=== PATIENT | male | born 1980 | race Caucasian/White ===

== ENCOUNTER 2022-08-11 09:42 | Emergency (ER) | payer OTHER, MEDICAID, SELFPAY ==
[2022-08-11] VITALS (10 sets, daily range): BP systolic 108–149; BP diastolic 57–79; PULSE 63–77; RESP 15; TEMP 36.2; O2SAT 96–100; BMI 23.6
--- NOTE | 2022-08-11 09:55 | DI.CT.S_ITS ---
PROCEDURE: CT ABDOMEN PELVIS W CON INDICATIONS: severe LLQ pain, guarding TECHNIQUE: After the administration of IV contrast, axial sections were acquired from the lung bases to the pubic symphysis. Coronal and sagittal reformats were performed. For radiation dose reduction, the following was used: automated exposure control, adjustment of mA and/or kV according to patient size. COMPARISON: None. FINDINGS: Image quality: Excellent. Lung bases: Unremarkable. Heart: No significant findings. ABDOMEN: Liver: Small cyst. Gallbladder: Not distended. Biliary ducts: Unremarkable. Pancreas: Unremarkable. Spleen: Unremarkable. Adrenal Glands: Unremarkable. Kidneys and Ureters: No hydronephrosis. Stomach and Bowel: Stomach, small bowel loops, and colon are unremarkable. A few colonic diverticuli are suspected. Normal appendix. Peritoneum: No abnormal intraperitoneal fluid. No free air. Ventral Wall: Fat containing periumbilical hernia. Abdominal Nodes: No retroperitoneal or mesenteric adenopathy by size criteria. Vessels: Aorta and inferior vena cava are normal in size. PELVIS: Pelvic Organs: No free fluid. Bladder: Not distended. No stones. Pelvic Nodes: No enlarged lymph nodes. Miscellaneous: Possible fat containing right inguinal hernia. Clip in the region of the right inguinal canal. Bones: No suspicious lesion. IMPRESSION: Source of abdominal pain is not identified. No free fluid. Dictated by: Bay Rowley M.D. on 08/11/2022 at 9:44 Approved by: Bay Rowley M.D. on 08/11/2022 at 9:50
[2022-08-11 10:17] LABS: Add Manual Diff / Slide Review NO; Basophils Absolute Auto 0 /uL (0-100); Eosinophils Absolute Auto 200 /uL (0-450); Eosinophils Percent Auto 4.4 % (2-4); Hematocrit 41.5 % (41-53); Hemoglobin 14.1 g/dL (13.5-17.5); Lymphocytes Absolute Auto 1600 /uL (1100-4500); Lymphocytes Percent Auto 36.3 % (25-40); Mean Corpuscular HGB Conc 34.1 % (30-36); Mean Corpuscular Hemoglobin 32.8 PG (26-34); Mean Corpuscular Volume 96.2 fL (80-100); Monocytes Absolute Auto 500 /uL (0-900); Monocytes Percent Auto 10.4 % (3-14); Neutrophils Absolute Auto 2100 /uL (1500-7000); Neutrophils Percent Auto 47.9 % (50-75); Platelet Count 231 X10^3/uL (150-400); Red Blood Cell Count 4.31 X10^6/uL (4.5-5.9); Red Cell Distribution Width 14.5 % (11.6-14.8); White Blood Cell Count 4.5 X10^3/uL (4.5-11.0)
--- NOTE | 2022-08-11 10:26 | ED.ABDPAIN ---
HPI - Abdominal Pain General Chief Complaint: Abdominal Pain Stated Complaint: thinks he has a hernia for about a month Time Seen by Provider: 08/11/22 09:55 History of Present Illness HPI narrative: 41-year-old male smoker with noncontributory medical history presents with a chief complaint of gradually worsening left lower quadrant pain over the past few days if not weeks. [place] and this is the 1st time he is come to land been able to become evaluated. He has worsening pain which he states seems to worsen when he moves or presses on it. He is nauseated but denies any vomiting. He is had no change in appetite and denies constipation or diarrhea. He is passing gas without difficulty. He denies any injury, heavy lifting or known trauma. Denies dysuria, frequency or urgency. Related Data Allergies Allergy/AdvReac Type Severity Reaction Status Date / Time No Known Drug Allergies Allergy Verified 08/11/22 11:02 Review of Systems Review of Systems Narrative: GENERAL: See HPI HEENT: Denies sinus pain, ear pain, sore throat, difficulty swallowing, dizziness. RESPIRATORY: Denies dyspnea, cough, wheezing, hemoptysis, sputum. CARDIOVASCULAR: Denies chest pain, palpitations, orthopnea, edema, GASTROINTESTINAL: See HPI : See HPI MUSCULOSKELETAL: denies weakness, joint pain, or bony pain SKIN: Denies rash, skin lesions, or other NEUROLOGIC: Denies weakness, headache, numbness, change in speech, confusion, seizures, incoordination. PSYCHIATRIC: No concerning psychosocial issues. 12 point review of systems is negative except for those stated above Patient History Social History Smoking Status: Unknown if ever smoked Exam Narrative Exam Narrative: GENERAL: 41[] year old patient appears stated age. Well-developed patient, in mild distress. HEAD: Atraumatic. Normocephalic. EYES: Pupils equal round and reactive. Extraocular motions intact. No scleral icterus. No injection or drainage. ENT: Nose without bleeding, purulent drainage. Throat without erythema, tonsillar hypertrophy or exudate. Airway patent. NECK: Trachea midline. Non tender CARDIOVASCULAR: Regular rate and rhythm without murmurs, gallops, or rubs. RESPIRATORY: Clear to auscultation. Breath sounds equal bilaterally. No wheezes, rales, or rhonchi. GASTROINTESTINAL: Abdomen soft, significant tenderness to palpation of left lower quadrant with localized guarding. Bowel sounds present EXTREMITIES: No edema or joint tenderness. BACK: Nontender without deformity or crepitance. No flank tenderness. NEURO: AOx3. SKIN: No rash or erythema of visible areas Initial Vital Signs Initial Vital Signs: Vital Signs Temperature 97.2 F L 08/11/22 09:46 Pulse Rate 77 08/11/22 09:46 Respiratory Rate 15 08/11/22 09:46 Blood Pressure 119/79 08/11/22 09:46 Pulse Oximetry 97 08/11/22 09:46 Oxygen Delivery Method 08/11/22 09:46 Course Orders Ordered: ED Orders 08/11/22 09:55 CT abdomen pelvis w con Stat 08/11/22 10:09 Complete Blood Count AUTO DIFF Stat Comprehensive Metabolic Panel Stat Lactate (Lactic Acid) Stat Lipase Stat 08/11/22 11:23 Urinalysis and Microscopic Stat Discontinued Medications Sodium Chloride (Normal Saline 0.9%) 1,000 mls @ 1,000 mls/hr IV BOLUS ONE Stop: 08/11/22 10:54 Last Admin: 08/11/22 11:15 Dose: 1,000 mls/hr Documented By: PEGGY Vital Signs Vital signs: Vital Signs - 8 hr 08/11/22 09:46 08/11/22 10:00 08/11/22 10:05 Temperature 97.2 F L Pulse Rate 77 68 Respiratory Rate 15 Blood Pressure 119/79 117/60 Pulse Oximetry 97 96 Oxygen Delivery Method Room Air 08/11/22 10:05 08/11/22 10:18 08/11/22 10:18 Temperature Pulse Rate 67 63 Respiratory Rate Blood Pressure 149/73 H Pulse Oximetry 98 99 Oxygen Delivery Method 08/11/22 10:30 08/11/22 10:30 08/11/22 10:35 Temperature Pulse Rate 65 65 Respiratory Rate Blood Pressure 113/58 L Pulse Oximetry 97 97 Oxygen Delivery Method 08/11/22 10:35 08/11/22 11:00 08/11/22 11:01 Temperature Pulse Rate 64 68 Respiratory Rate Blood Pressure 117/61 Pulse Oximetry 99 100 Oxygen Delivery Method 08/11/22 11:01 08/11/22 11:30 08/11/22 11:30 Temperature Pulse Rate 63 Respiratory Rate Blood Pressure 132/60 108/66 Pulse Oximetry 100 Oxygen Delivery Method MDM - Abdominal Pain Lab Data Result diagrams: 08/11/22 10:09 08/11/22 10:09 Labs: Lab Results 08/11/22 08/11/22 08/11/22 Range/Units 10:09 10:09 10:09 WBC 4.5 (4.5-11.0) X10^3/uL RBC 4.31 L (4.5-5.9) X10^6/uL Hgb 14.1 (13.5-17.5) g/dL Hct 41.5 (41-53) % MCV 96.2 (80-100) fL MCH 32.8 (26-34) PG MCHC 34.1 (30-36) % RDW 14.5 (11.6-14.8) % Plt Count 231 (150-400) X10^3/uL Neut % (Auto) 47.9 L (50-75) % Lymph % (Auto) 36.3 (25-40) % Mitchell % (Auto) 10.4 (3-14) % Eos % (Auto) 4.4 H (2-4) % Baso % (Auto) 1.0 (0-2) % Neut # (Auto) 2100 (8170-4760) /uL Lymph # (Auto) 1600 (8268-5598) /uL Mitchell # (Auto) 500 (0-900) /uL Eos # (Auto) 200 (0-450) /uL Baso # (Auto) 0 (0-100) /uL Sodium 139 (137-145) mmol/L Potassium 4.3 (3.4-5.1) mmol/L Chloride 106 (98-107) mmol/L Carbon Dioxide 26 (22-32) mmol/L BUN 19 (9-20) mg/dL Creatinine 1.16 (0.66-1.25) mg/dL Estimated GFR > 60 (>60) mL/min BUN/Creatinine Ratio 16.4 (6-22) Glucose 84 (70-100) mg/dL Lactate 0.6 L (0.7-2.1) mmol/L Calcium 8.6 (8.4-10.2) mg/dL Total Bilirubin 0.4 (0.2-1.3) mg/dL AST 29 (17-59) IU/L ALT 20 (<50) IU/L Alkaline Phosphatase 73 (38-126) U/L Total Protein 7.1 (6.3-8.2) g/dL Albumin 4.1 (3.5-5.0) g/dL Globulin 3.0 (1.7-4.1) g/dL Albumin/Globulin Ratio 1.4 (1.0-2.8) Lipase 71 (23-300) U/L Urine Color Urine Appearance Urine pH (4.5-8.0) Ur Specific [place] (1.000-1.035) Urine Protein (Negative) Urine Glucose (UA) (Negative) g/dL Urine Ketones (NEGATIVE) Urine Occult Blood (Negative) Urine Nitrate (Negative) Urine Bilirubin (NEGATIVE) Urine Urobilinogen (0.2) E.U./dL Ur Leukocyte Esterase (NEGATIVE) Urine RBC (0-5/HPF) Urine WBC (0-5/HPF) Urine Bacteria (None) Ur Culture Indicated? Micro UA Comment 08/11/22 Range/Units 11:23 WBC (4.5-11.0) X10^3/uL RBC (4.5-5.9) X10^6/uL Hgb (13.5-17.5) g/dL Hct (41-53) % MCV (80-100) fL MCH (26-34) PG MCHC (30-36) % RDW (11.6-14.8) % Plt Count (150-400) X10^3/uL Neut % (Auto) (50-75) % Lymph % (Auto) (25-40) % Mitchell % (Auto) (3-14) % Eos % (Auto) (2-4) % Baso % (Auto) (0-2) % Neut # (Auto) (8437-1637) /uL Lymph # (Auto) (7101-7404) /uL Mitchell # (Auto) (0-900) /uL Eos # (Auto) (0-450) /uL Baso # (Auto) (0-100) /uL Sodium (137-145) mmol/L Potassium (3.4-5.1) mmol/L Chloride (98-107) mmol/L Carbon Dioxide (22-32) mmol/L BUN (9-20) mg/dL Creatinine (0.66-1.25) mg/dL Estimated GFR (>60) mL/min BUN/Creatinine Ratio (6-22) Glucose (70-100) mg/dL Lactate (0.7-2.1) mmol/L Calcium (8.4-10.2) mg/dL Total Bilirubin (0.2-1.3) mg/dL AST (17-59) IU/L ALT (<50) IU/L Alkaline Phosphatase (38-126) U/L Total Protein (6.3-8.2) g/dL Albumin (3.5-5.0) g/dL Globulin (1.7-4.1) g/dL Albumin/Globulin Ratio (1.0-2.8) Lipase (23-300) U/L Urine Color Yellow Urine Appearance Clear Urine pH 7.0 (4.5-8.0) Ur Specific [place] 1.010 (1.000-1.035) Urine Protein Negative (Negative) Urine Glucose (UA) Negative (Negative) g/dL Urine Ketones Negative (NEGATIVE) Urine Occult Blood Negative (Negative) Urine Nitrate Negative (Negative) Urine Bilirubin Negative (NEGATIVE) Urine Urobilinogen 0.2 (0.2) E.U./dL Ur Leukocyte Esterase Negative (NEGATIVE) Urine RBC None seen (0-5/HPF) Urine WBC None seen (0-5/HPF) Urine Bacteria None seen (None) Ur Culture Indicated? Cult not indicated Micro UA Comment Microscopic normal Imaging Data CT scan - abdomen/pelvis: Radiologist's Impression: Close Abdomen/Pelvis CT (Signed) Ace Rowleyn - 08/11/22 [place] [address] CT Scan Report Signed Patient: Diya Regan MR#: [id number] : 10/31/1933 Acct:[id number] Age/Sex: 88 / F Date of Service: 08/11/22 Loc: ED Accession Number: [id number] ?? Procedure: CT abdomen pelvis w con Ordering Provider: Severino Aguilar D.O. PROCEDURE:? CT ABDOMEN PELVIS W CON ? INDICATIONS:? large volume GI bleeding, lower abdominal cramping ? TECHNIQUE:? After the administration of oral and IV contrast, axial sections were acquired from the lung bases to the pubic symphysis.? Coronal and sagittal reformats were performed.? For radiation dose reduction, the following was used:? automated exposure control, adjustment of mA and/or kV according to patient size. ? COMPARISON:? None. ? FINDINGS:? Image quality:? Excellent.? ? Lung bases:? No pleural effusion. Heart:? No significant findings. ? ? ABDOMEN: Liver:? Well-circumscribed hepatic hypodensities most consistent with benign cysts.? Left lobe calcification. Gallbladder:? Absent. Biliary ducts:? Common hepatic duct measures 1.1 cm, (02/01).? CBD measures 0.5 cm.? No filling defect identified.? Suspect reserved phenomenon.? Pancreas:? No peripancreatic fluid collection. Spleen:? No splenomegaly. Adrenal Glands:? No nodule. Kidneys and Ureters:? No hydronephrosis.? Large simple left renal cyst measuring 7.6 cm.? Suspect left peripelvic cysts.? Scarring at the superior pole of the right kidney.? ? Stomach and Bowel:? Stomach is not distended.? No small bowel obstruction.? The appendix is not identified.? There is prominent stool in the cecum.? Diverticulosis.? No diverticulitis demonstrated.? There is liquid stool contents in the distal colon and rectum.? There is mural enhancement of the rectum and sigmoid colon. Peritoneum:? No abnormal intraperitoneal fluid.? No free air.? ? Ventral Wall: ? No hernia.? Abdominal Nodes:? No retroperitoneal or mesenteric adenopathy by size criteria.? Vessels:? Aorta and inferior vena cava are normal in size.? Moderate plaque.? ? PELVIS: Pelvic Organs:? Unremarkable.? ? Bladder:? Distended.? No stones.? ? Pelvic Nodes: No enlarged lymph nodes.? Miscellaneous:? Probable fat containing left inguinal hernia.? Buttocks injection granulomas. ? Bones:? No suspicious lesion.? Multilevel DDD.? Right hip arthroplasty.? Beam hardening artifact. ? ? IMPRESSION:? 1. Mural enhancement at the sigmoid colon and rectum containing liquid stool contents.? This is most consistent with distal colitis/proctitis. ? 2. Diverticulosis.? No diverticulitis identified. ? 3. No small bowel obstruction.? No free fluid.? ? Dictated by: Bay Rowley M.D. on 08/11/2022 at 9:36 ? ? Approved by: Bay oRwley M.D. on 08/11/2022 at 9:44 ? MDM Narrative Medical decision making narrative: Multiple etiologies for patient's symptoms considered include, but not limited to: [Bowel obstruction versus kidney stone versus diverticulitis versus other Patient's symptoms improved over duration of stay with above-stated therapies. History, physical exam, labs, imaging, and response to therapies have been reassuring. Findings and discharge diagnosis discussed with patient/family followed by verbalization of understanding Return precautions discussed with patient/family whom verbalize understanding. Pain has been well controlled and patient is tolerating oral hydration. Discharge Plan Departure Patient Disposition: Home Clinical Impression: Abdominal pain Instructions: DI for Abdominal Pain-Adult Activity Restrictions/Additional Instructions: *You have been diagnosed with [abdominal pain] * As we discussed your history and physical exam as well as labs and imaging are very reassuring. There is no evidence of any severe diagnoses that would require a specific or immediate intervention. *What to do: *Please consider the use of Tylenol or Motrin for pain *Please follow up with your primary care provider in 2-3 days, call for an appointment. Let them know you were seen in the Emergency Department and that we ask that you be seen in follow up. We will electronically transmit a record of today's note if your PCP is in our system *Please consider a clear liquid diet for the next 24-48 hours and then slowly advance to regular as tolerated. Also, try to avoid alcohol, nicotine, caffeine, spicy, acidic or fatty foods as this may worsen your symptoms *If you do not have a primary care provider please contact the [facility] Resource line at [phone]. They will ask some questions about your medical history and help get you set up with a doctor in the community. *Return to Emergency Department if you should have any new, worsening or concerning symptoms, such as [fever greater than 101 F, shaking chills, worsening pain, persistent vomiting or other bothersome symptoms] Referrals: *[facility]* [Primary Care Provider] -
[2022-08-11 10:27] LABS: Alanine Aminotransferase 20 IU/L (<50); Albumin 4.1 g/dL (3.5-5.0); Albumin Globulin Ratio 1.4 (1.0-2.8); Alkaline Phosphatase 73 U/L (38-126); Aspartate Aminotransferase 29 IU/L (17-59); BUN Creatinine Ratio 16.4 (6-22); Bilirubin Total 0.4 mg/dL (0.2-1.3); Blood Urea Nitrogen 19 mg/dL (9-20); Calcium 8.6 mg/dL (8.4-10.2); Carbon Dioxide 26 mmol/L (22-32); Chloride 106 mmol/L (98-107); Estimated Glomerular Filt Rate > 60 mL/min (>60); Glucose 84 mg/dL (70-100); HEMOLYSIS 19 (0-50); Lipase 71 U/L (23-300); Potassium 4.3 mmol/L (3.4-5.1); Sodium 139 mmol/L (137-145); Total Protein 7.1 g/dL (6.3-8.2)
[2022-08-11 10:28] LABS: Lactate (Lactic Acid) 0.6 mmol/L (0.7-2.1)
[2022-08-11] MEDS: SODIUM CHLORIDE 0.9% 1,000 ML 1000 ML IV (11:15)
[2022-08-11 11:56] LABS: Appearance Urine UA CLEAR; Bilirubin Urine UA NEGATIVE (NEGATIVE); Color Urine UA YELLOW; Glucose Urine UA NEGATIVE (Negative); Ketones Urine UA NEGATIVE (NEGATIVE); Leukocyte Esterase Urine UA NEGATIVE (NEGATIVE); Nitrite Urine UA NEGATIVE (Negative); Occult Blood Urine UA NEGATIVE (Negative); Protein Urine UA NEGATIVE (Negative); Urobilinogen Urine UA 0.2 E.U./dL (0.2)
[2022-08-11 12:03] LABS: RBC Urine None Seen (0-5/HPF); WBC Urine None Seen (0-5/HPF)
[2022-08-11 12:04] LABS: Bacteria Urine None Seen; Culture Indicated Urine Cult Not Indicated; Urine Comments Microscopic Normal
== END 2022-08-11 12:28 | disposition home or self-care (01) ==
PROVIDERS: Emergency Provider Emergency Medicine
DX: R10.32 Left lower quadrant pain (principal)
CPT/HCPCS: 36415; 74177; 80053; 81001; 83605; 83690; 85025; 99284; Q9967